=== PATIENT | male | born 1945 | race Caucasian/White ===

== ENCOUNTER 2017-12-31 18:03 | Emergency (ER) | payer MEDICARE, BC ==
[2017-12-31] MEDS: Ondansetron 4 MG Tab.DIS PO ONE (18:55)
[2017-12-31] MEDS: Ketorolac 30 MG/ML SDV IM ONE (18:55)
[2017-12-31] MEDS ORDERED: Ondansetron 4 MG Tab.DIS ONE (20:05)
--- NOTE | 2018-01-07 00:31 | ER ---
DATE OF SERVICE: 12/31/2017 HPI: The patient is 72-year-old male who presents to the emergency room with a chief complaint of left flank pain. He notes his pain is a little better than it was earlier in the day. He is up here fishing. He felt the pain some time around noon, but now it is continuing to bother him, but more importantly, he notes he has some nausea. He has not had any fevers or chills. He has not had any emesis. The patient does not have any dysuria. He has not had any blood in the stool or blood in the urine that he can see. He feels like he has a kidney stone. He notes he has had these before. He is up here fishing and is planning to go home in the next day or 2. ALLERGIES: NKDA. CURRENT MEDICATIONS: Trazodone 50 mg p.o. daily, Pravachol 40 mg p.o. daily, omeprazole 20 mg p.o. daily, loratadine 10 mg p.o. daily, levothyroxine 25 mcg p.o. daily, latanoprost one drop daily, lisinopril and hydrochlorothiazide 20/25 one p.o. daily, gabapentin 400 mg p.o. b.i.d., fish oil 1000 mg he takes 3000 mg daily, calcium carbonate 500 mg daily , atenolol 25 mg p.o. daily, aspirin 81 mg p.o. daily, metformin 850 mg which he takes with dinner, amlodipine 10 mg p.o. daily, and metformin 1700 mg p.o. daily. The patient also has some hydrocodone with him in a bottle. He had 30 of these. The last time he got a kidney stone. He has 24 of them left. He notes he took one and his pain is doing well, but he feels somewhat nauseated. PHYSICAL EXAMINATION: GENERAL: He is alert, oriented, in no apparent distress. VITAL SIGNS: Temperature is 98.4, pulse is 86, blood pressure is 138/71, respirations 17, O2 saturation is 97% on room air. HEENT: It is generally unremarkable. LUNGS: Clear. HEART: Regular sinus rhythm. The patient has no CVA tenderness. ABDOMEN: Soft, nontender. Positive bowel sounds. EXTREMITIES: He does have some mild lower extremity edema. LABS: UA shows greater than 100 red blood cells, 5 to 10 white blood cells, nitrite negative. BUN and creatinine are 16 and 1.25. His glucose is slightly elevated at 199. Assesment:ureterolithias ER COURSE: The patient was given 4 mg of Zofran sublingually, which resolved his nausea. He really did not have a lot for pain, after he got the Zofran, he described his pain as basically 0 and his nausea resolved. He was given a strainer to take home and also 5 Zofran tablets. He is planning to go home tomorrow. We did offer to obtain a CT to verify whether or not he had a stone, as well as to get some idea of the size, but he has been doing fairly well, and he is quite sure he has a previous stone, given his urine findings that is extremely likely, and he has had these before. He has a urologist already. Basically, he is going to strain his urine. If his pain does not resolve over the next couple of days, he will make an appointment with his urologist. If he develops worsening symptoms, such as fever, chills, worsening pain, nausea, vomiting, etc., he would return to the ER. JOSE FRANCISCO /[id number] ASAF
== END 2017-12-31 19:25 | disposition home or self-care (01) ==
LOC: LB.ED 18:03 → EDSEX 18:03 → LB.ED 19:25
DX: N20.1 Calculus of ureter (principal)
CPT/HCPCS: 36415; 80048; 81001; 96372; 99284; A9270; J1885; 99283

== ENCOUNTER 2023-12-30 11:06 | Emergency (ER) | payer BC, MEDICARE ==
[2023-12-30] MEDS ORDERED: Nystatin Topical Powder 15 GM Bottle ONE (15:50)
== END 2023-12-30 15:56 | disposition home or self-care (01) ==
LOC: LB.ED 11:06
DX: L02.214 Cutaneous abscess of groin (principal); E11.9 Type 2 diabetes mellitus without complications; I10 Essential (primary) hypertension; K21.9 Gastro-esophageal reflux disease without esophagitis; Z79.84 Long term (current) use of oral hypoglycemic drugs; Z79.899 Other long term (current) drug therapy
CPT/HCPCS: 87070; 87205; 99282; A9270